=== PATIENT | female | born 1975 | race Caucasian/White ===

== ENCOUNTER 2019-06-28 17:28 | Outpatient (REF) | payer BC, SELFPAY ==
--- NOTE | 2019-06-28 15:30 | PAPFT_PTH ---
PATIENT: Sabrina Padilla LOC: [facility] U#:[id number] AGE/SX: 44/F ROOM: RE06/28/[address]: MILAGROS Shipman : 1975 BED: DIS: 06/28/2019 SPEC #: [id number] RECD: 06/28/19 17:45 STATUS: JODYMeri REQ #: [id number] GARTH: 06/28/19 15:[address]: Michaelle Rendon DEPT: [facility] Cytology RECD BY: Shantell Jimenez ENTERED: 06/28/19 17:45 SP TYPE: PAPFT CAMPBELL DR: Jacquelin Sheridan MD Tissues: 1 - CX/ENDOCX FOR PAP SMEARS Procedures: PAP THIN PREP/UVM Screening HPV DNA PROBE Comments: [id number]
== END 2019-06-28 17:48 ==
LOC: LBN 17:28
PROVIDERS: PCP Family Medicine; Visit Provider Nurse Practitioner Family
DX: Z12.4 Encounter for screening for malignant neoplasm of cervix (principal); Z11.51 Encounter for screening for human papillomavirus (HPV)
CPT/HCPCS: 88142; 87624

== ENCOUNTER 2019-06-30 01:53 | Outpatient (CLI) | payer BC, SELFPAY ==
--- NOTE | 2019-06-30 11:30 | DI.MAMMO_ITS ---
SYMPTOM/DIAGNOSIS: MAMMOGRAMS: Mammograms were interpreted according to the usual protocol including computer analysis with CAD system, tomosynthesis and C view imaging. Comparison with prior examinations. No suspicious masses or microcalcifications are seen. There is no definite evidence of malignancy. Breast density category B. IMPRESSION: Category 1, negative mammogram. Routine screening is recommended. Breast density category B. MQSA ASSESSMENT OF FINDINGS: Negative. Category 1. Patient will receive a letter notifying them of these results. BI-RADS category B. There are scattered areas of fibroglandular density.
== END 2019-06-30 02:13 ==
PROVIDERS: PCP Family Medicine; Visit Provider Nurse Practitioner Family
DX: Z12.31 Encounter for screening mammogram for malignant neoplasm of breast (principal)
CPT/HCPCS: 77063; 77067

== ENCOUNTER 2019-07-01 04:07 | Outpatient (CLI) | payer BC, SELFPAY ==
[2019-07-01 10:52] LABS: Abs Immature Grans 0.02 k/cumm (0.0-0.09); Absolute Basophil Count 0.04 k/cumm (0.0-0.2); Absolute Eosinophil Count 0.11 k/cumm (0.0-0.7); Absolute Lymphocyte Count 2.22 k/cumm (1.2-3.4); Absolute Monocyte Count 0.68 k/cumm (0.11-0.7); Absolute Neutrophil Count 5.68 k/cumm (1.2-6.7); Basophils % 0.5; Eosinophils % 1.3; HCT 37.5 % (36.0-46.0); HGB 11.6 g/dL (12.0-15.5); Immature Grans % 0.2; Lymphocytes % 25.4; Mean Corp. HGB Concentration 30.9 g/dL (32.0-36.0); Mean Corpuscular Hemoglobin 23.3 pg (27.0-33.0); Mean Corpuscular Volume 75.5 fL (80-95); Mean Platelet Volume 9.2 fL (8.0-11.0); Monocytes % 7.8; Neutrophils % 64.8; Platelet Count 467 x1000/uL (130-400); RBC 4.97 m/cumm (4.00-5.20); RBC Distribution Width 16.6 % (11.7-14.6); White Blood Cell Count 8.75 k/cumm (4.4-10.8)
[2019-07-01 11:06] LABS: Hemoglobin A1C 6.1 % (4.5-6.2)
[2019-07-01 13:02] LABS: ALT 33 U/L (14-59); AST 23 U/L (15-37); Albumin 3.2 g/dL (3.4-5.0); Alkaline Phosphatase 97 U/L (46-116); Anion Gap 11.1 mmol/L (3-11); BUN 9 mg/dL (7-18); Bilirubin, Total 0.4 mg/dL (0.2-1.0); CO2 23.9 mmol/L (21.0-32.0); CREATININE 0.63 mg/dL (0.55-1.02); Calcium 8.3 mg/dL (8.5-10.1); Calculated LDL 127 mg/dL; Chloride 106 mmol/L (98-107); Cholesterol 195 mg/dL (50-200); Glucose 87 mg/dL (70-100); HDL Cholesterol 46 mg/dL (40-60); Potassium 4.2 mmol/L (3.5-5.1); Sodium 141 mmol/L (136-145); TSH 1.04 uIU/mL (0.36-3.74); Total Protein 6.8 g/dL (6.4-8.2); Triglyceride 111 mg/dL (30-150)
[2019-07-01 13:20] LABS: FREE T4 1.07 ng/dL (0.76-1.46)
[2019-07-01 15:03] LABS: Iron 30 ug/dL (50-175); Total Iron Binding Capacity 351 ug/dL (250-450); Transferrin Sat 9 % (15-50)
[2019-07-01 15:28] LABS: Ferritin 13 ng/mL (8-388)
[2019-07-04 11:12] LABS: Transferrin 239 mg/dL (201-352)
[2019-07-04 11:24] LABS: Lyme Ab w Rflx to Lyme Confirm Negative
[2019-07-04 17:29] LABS: Anaplasma phagocytophilum Negative (Negative); B. miyamotoi PCR Negative (Negative); Babesia divergens/MO-1 Negative (Negative); Babesia duncani Negative (Negative); Babesia microti Negative (Negative); Ehrlichia chaffeensis Negative (Negative); Ehrlichia ewingii/canis Negative (Negative); Ehrlichia muris eauclairensis Negative (Negative)
== END 2019-07-01 04:27 ==
PROVIDERS: PCP Family Medicine; Visit Provider Nurse Practitioner Family
DX: R53.83 Other fatigue (principal)
CPT/HCPCS: 36415; 80053; 80061; 83721; 87798; 82728; 83036; 83540; 83550; 84439; 84443; 84466; 85025; 86618

== ENCOUNTER 2022-12-23 02:21 | Outpatient (CLI) | payer OTHER, SELFPAY ==
[2022-12-23 15:55] LABS: HCT 42.4 % (36.0-46.0); HGB 13.3 g/dL (11.2-15.7); MCH 25.5 pg (27.0-33.0); MCHC 31.4 % (32.0-36.0); MCV 81 fL (80-95); MPV 8.9 fL (8.0-11.0); Platelet Count 404 10^3/uL (130-400); RBC 5.21 10^6/uL (3.93-5.22); RDW 14.3 % (11.7-14.6); RDW-SD 42.2 fL; WBC 12.81 10^3/uL (4.4-10.8)
[2022-12-23 16:11] LABS: Hemoglobin A1C 5.8 % (<5.7)
[2022-12-23 16:41] LABS: Anion Gap 7.5 mmol/L (3-11); BUN 10 mg/dL (7-18); CO2 28.5 mmol/L (21.0-32.0); CREATININE 0.7 mg/dL (0.55-1.02); Chloride 104 mmol/L (98-107); Estimated GFR 107.28 (mL/min/1.73m2); Glucose 137 mg/dL (74-106); Potassium 3.3 mmol/L (3.5-5.1); Sodium 140 mmol/L (136-145)
[2022-12-23 17:26] LABS: Calculated LDL 82 mg/dL (<100); Cholesterol 210 mg/dL (<200); Ferritin 32 ng/mL (8-252); HDL Cholesterol 50 mg/dL (40-60); Triglyceride 392 mg/dL (<150)
== END 2022-12-23 02:22 | disposition home or self-care (01) ==
PROVIDERS: PCP Nurse Practitioner Family; Visit Provider Nurse Practitioner Family
DX: D50.9 Iron deficiency anemia, unspecified (principal); R73.03 Prediabetes; F41.8 Other specified anxiety disorders; E78.5 Hyperlipidemia, unspecified; R03.0 Elevated blood-pressure reading, without diagnosis of hypertension; E66.01 Morbid (severe) obesity due to excess calories
CPT/HCPCS: 36415; 80048; 80061; 85027; 82728; 83036

== ENCOUNTER → 2023-11-24 02:06 | Outpatient (CLI) | payer OTHER, SELFPAY ==
--- NOTE | 2023-11-24 07:30 | DI.MAMMO_ITS ---
Exam(s) MAMMO SCREENING EXAM: MAMMO SCREENING CLINICAL HISTORY: screening,Z12.39. TECHNIQUE: Bilateral full field digital CC and MLO mammographic images were obtained with 3D tomosyn thesis and utilizing computer aided detection (CAD). COMPARISON: Prior mammograms were reviewed. FINDINGS: There has been no significant change in the appearance and distribution of the fibroglandular tissue. There are no CAD designations. There are no new spiculated masses nor malignant appearing microcalcification groups. There is no significant architectural distortion nor skin thickening-retraction. IMPRESSION: No radiographic evidence of malignancy. BI-RADS Category 1 - Negative Breast Density - Category B - Scattered areas of fibroglandular density Breast density Category C or D implies that the patient has dense breast tissue. Dense breast tissue can make it harder to find cancer on a mammogram. Dense breast tissue is also associated with an incr eased risk of breast cancer. This information about the result of the mammogram report was provided to the patient to raise their awareness. Use this report when you speak with the patient about their risks for breast cancer, which includes their family history. At that time, you may recommend additional screening tests (Ultrasoun d or MRI) as these tests may add significant information. A negative radiographic report should not delay biopsy if a dominant or clinically suspicious mass is present. Up to ten percent of cancers are not identified on mammography. A negative report may reinforce clinical impression. Adenosis and dense breasts may obscure an underlying neoplasm. False positive reports average 6 to 10%. Patient will receive a letter notifying them of these results.
== END ==
PROVIDERS: PCP Nurse Practitioner Family; Visit Provider Nurse Practitioner Family
DX: Z12.31 Encounter for screening mammogram for malignant neoplasm of breast (principal)
CPT/HCPCS: 77063; 77067

== ENCOUNTER 2023-12-14 16:04 | Outpatient (REF) | payer OTHER, SELFPAY ==
--- NOTE | 2023-12-14 16:20 | PAPFT_PTH ---
PATIENT: Sabrina Padilla LOC: [facility] U#:[id number] AGE/SX: 48/F ROOM: RE12/14/[address]: Britt Weinstein : 1975 BED: DIS: 12/14/2023 SPEC #: [id number] RECD: 12/14/23 18:19 STATUS: JODYMeri REElmer #: [id number] GARTH: 12/14/23 16:[address]: Britt Weinstein DEPT: [facility] Cytology RECD BY: Shantell Jimenez ENTERED: 12/14/23 18:20 SP TYPE: PAPFT CAMPBELL DR: Susan Freeman, MILAGROS Tissues: 1 - CX/ENDOCX FOR PAP SMEARS Procedures: PAP THIN PREP/UVM Screening Comments: [id number]
== END 2023-12-14 16:05 | disposition home or self-care (01) ==
LOC: LBN 16:04
PROVIDERS: PCP Nurse Practitioner Family; Visit Provider Advanced Practice Midwife
DX: N94.9 Unspecified condition associated with female genital organs and menstrual cycle (principal); Z01.419 Encounter for gynecological examination (general) (routine) without abnormal findings
CPT/HCPCS: 88142; 87480; 87510; 87660

== ENCOUNTER 2024-11-11 17:17 | Outpatient (REF) | payer BC, SELFPAY ==
--- OUTSIDE RECORDS SUMMARY | 2024-11-11 17:21 | XMS_ITS | Encounter Summary ---
Author Organization [facility] Address [address] [place] [address] Care Team Providers Care Manufacturing Controller Name Role Phone Unavailable Primary Care Provider Unavailabl e Encounter Details Date Type Department Care Team (Late st Contact Info) Description 02/15/2009 Before PRISM Converted Visit ([place]) [facility] [place] conversion [address] [place] [address] Shannen Hammond [address] [place] [place] [address] Social History Tobacco Use Types Packs/Day Years Used Date Smoking Tobacco: Never Assessed Comments Unknown Sex and Gender Information Value Date Recorded Sex Assigned at Not on file Legal Sex Female 18:19 EST Gender Identity Not on file Sexual Orientation Not on file documented as of this encounter Plan of Treatment Not on file documented as of this encounter Procedures Procedure Name Priority Date/Time Associated Diagnosis Comments CYTOPATHOLOGY Routine 02/15/2009 0:00 EDT documented in this encounter Results * CYTOPATHOLOGY (02/15/2009 0:00 EDT) Pathology Report: CYTOPATHOLOGY REPORT ? Reports generated via electronic interface contain original data; ? however they are lacking the format of the original report. ? Caution should be taken when reading/interpreti ng unformatted reports. ? Name: ? SABRINA FRY ? Accession #: ? [id number] ? : ? 1975 (Age: 33) ??F ?Collect Date: ? 02/15/2009 ? Location: ? [facility] ? Receive Date: ? 02/16/2009 ? Provider: ?ANEA LELONG CNM ? Copy to: ? Specimen/Source: ?Pap Test, Cervix/Endocervix, ThinPrep Imaging System ? with manual evaluation ? Last Menstrual Period: ? 2/12/09 ? Menstrual/Pregnanc y Status: ? Other: ? HPVA - HPV testing requested if ASC-US on the current ThinPrep Pap test. ? SPECIMEN ADEQUACY ? Satisfactory for Evaluation ? - transformation zone component present ? GENERAL CATEGORIZATION ? Negative for Intraepithelial Lesion or Malignancy ? INTERPRETATION ? Reactive cellular changes associated with inflammation present (includes ?? repair). ? 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 ? Document reviewed and electronically signed by: ? Ismael James Son, MD ? Report Date: ??02/20/2009 11:24 ? End of Report ? [facility] 02/15/2009 02/16/2009 us Shannen Hammond CNM PATHOLOGY ORDERABLES Final Resul t [facility] [address] [place] [address] documented in this encounter Visit Diagnoses Not on filedocumented in this encounter
--- OUTSIDE RECORDS SUMMARY | 2024-11-11 17:21 | XMS_ITS | Encounter Summary ---
Author Organization [facility] Address [address] [place] [address] Care Team Providers Care Tomahawk Weapon System Operator Name Role Phone Beatriz Redmond MD Primary Care Provider [phone] Encounter Details Date Type Department Care Team (Late st Contact Info) Description 06/28/2019 Results Only [facility] [phone] Michaelle Rendon, [place] [id number] [address] [place] [address] Social History Tobacco Use Types Packs/Day Years [...] Procedure Name Priority Date/Time Associated Diagnosis Comments PAP TEST- RESULT ONLY Routine 06/28/2019 0:00 EDT documented in this encounter Results * PAP TEST- RESULT ONLY (06/28/2019 0:00 EDT) Pathology Report: CYTOPATHOLOGY REPORT Reports generated via electronic interface contain original data; however they are lacking the format of the original report. Caution should be taken when reading/interpreti ng unformatted reports. Name: ? SABRINA FRY ? Accession #: ? [id number] ? : ? 1975 (Age: 44) ??F ?Collect Date: ? 06/28/2019 ? Location: ? [facility] ? Receive Date: ? 06/29/2019 ? Provider: MICHAELLE RENDON SENIOR BUYER Copy to: IGLESIA JETT MD ? Final Report SPECIMEN ADEQUACY ? Satisfactory for Evaluation - transformation zone component present GENERAL CATEGORIZATION ? Negative for Intraepithelial Lesion or Malignancy ?? Last Menstrual Period: 04/2019 Specimen/Source: ??Pap Test, Cervix, ThinPrep Imaging System with manual evaluation Document reviewed and electronically signed by: ? MONAE Christensen(ASCP) ? Report ??Date: 07/01/2019 10:25 HPV with Pap Test ? Date Ordered: ? 07/01/2019 ? Status: ?? Signed Out ?Date Complete: ? 07/04/2019 ? By: ??System Interface ? Date Reported: ? 07/04/2019 ? Interpretation RESULT: Negative for HPV. No E6 or E7 mRNA is detected from HPV types 16,18,31,33,35, 39,45,51,52,56,58, 59,66, and 68 by modeler mediated amplification. Comments Document reviewed and electronically signed by: ? System Interface ? Report date: 07/04/2019 By the signature above, the attending physician certifies that he/she has personally conducted a gross and/or microscopic examination of the described specimens and rendered or confirmed the above diagnosis. End of Report [facility] 06/28/2019 06/29/2019 Michaelle Rendon SENIOR BUYER PATHOLOGY ORDERABLES Final R esult [facility] [address] [place] [address] documented in this encounter Visit Diagnoses Not on filedocumented in this encounter Care Teams Tomahawk Weapon System Operator Relationship Specialty Start Date End Date Beatriz Redmond MD [address] [place] [address] PCP - General 09/28/09 documented as of this encounter
--- OUTSIDE RECORDS SUMMARY | 2024-11-11 17:21 | XMS_ITS | Encounter Summary ---
Author Organization [facility] Address [address] [place] [address] Care Team Providers Care Avid Editor Name Role Phone Beatriz Redmond MD Primary Care Provider [phone] Unknown, Provider Primary Care Provider Unava ilable Encounter Details Date Type Department Care Team (Late st Contact Info) Description 03/01/2004 Results Only [facility] [place] [facility] [place] conversion [address] [place] [address] Michaelle Rendon, [facility] [address] [place] [address] [place] [address] Social History Tobacco Use Types [...] Priority Date/Time Associated Diagnosis Comments CYTOPATHOLOGY Routine 03/01/2004 0:00 EDT documented in this encounter Results * CYTOPATHOLOGY (03/01/2004 0:00 EDT) Pathology Report: CYTOPATHOLOGY REPORT Reports generated via electronic interface contain original data; however they are lacking the format of the original report. Caution should be taken when reading/interpreti ng unformatted reports. Name: ? SABRINA FRY ? Accession #: ? [id number] : ? 1975 (Age: 28) ??F ?Collect Date: ? 03/01/2004 Location: ? [facility] ? Receive Date: ? 03/05/2004 Provider: ?MICHAELLE RENDON ADJUNCT WRITING INSTRUCTOR Copy to: ? Specimen/Source: ?ThinPrep Pap Test, Cervix/Endocervix Last Menstrual Period: ? 02/20/2004 Other: ? HPVA - HPV testing requested if ASC-US on the current ThinPrep Pap test. ? SPECIMEN ADEQUACY ? Satisfactory for Evaluation - transformation zone component present GENERAL CATEGORIZATION ? Negative for Intraepithelial Lesion or Malignancy INTERPRETATION ? 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 ? Document reviewed and electronically signed by: ? MONAE Johnson(ASCP) ? Report Date: ??03/07/2004 11:23 End of Report [facility] 03/01/2004 03/05/2004 us Michaelle Rendon ADJUNCT WRITING INSTRUCTOR PATHOLOGY ORDERABLES Final R esult [facility] [address] [place] [address] documented in this encounter Visit Diagnoses Not on filedocumented in this encounter Care Teams Avid Editor Relationship Specialty Start Date End Date Beatriz Redmond MD [address] [place] [address] PCP - General 09/28/09 Unknown, Provider, PCP - General 09/26/09 09/27/09 documented as of this encounter
--- OUTSIDE RECORDS SUMMARY | 2024-11-11 17:21 | XMS_ITS | Encounter Summary ---
Author Organization [facility] Address [address] [place] [address] Care Team Providers Care Music Instructor Name Role Phone Beatriz Redmond MD Primary Care Provider [phone] Encounter Details Date Type Department Care Team (Late st Contact Info) Description 05/31/2015 Results Only [facility] [phone] Michaelle Rendon, [address] [place] [address] Social History Tobacco Use Types [...] Diagnosis Comments PAP TEST- RESULT ONLY Routine 05/31/2015 0:00 EDT documented in this encounter Results * PAP TEST- RESULT ONLY (05/31/2015 0:00 EDT) Pathology Report: CYTOPATHOLOGY REPORT Reports generated via electronic interface contain original data; however they are lacking the format of the original report. Caution should be taken when reading/interpreti ng unformatted reports. Name: ? SABRINA FRY ? Accession #: ? [id number] ? : ? 1975 (Age: 40) ??F ?Collect Date: ? 05/31/2015 ? Location: ? [facility] ? Receive Date: ? 06/01/2015 ? Provider: MICHAELLE RENDON COAL AND ASH SUPERVISOR Copy to: IGLESIA JETT MD ? Final Report SPECIMEN ADEQUACY ? Satisfactory for Evaluation - transformation zone component present GENERAL CATEGORIZATION ? Negative for Intraepithelial Lesion or Malignancy ?? Last Menstrual Period: 05/18/15 Specimen/Source: ??Pap Test, Cervix/Endocervix, ThinPrep Imaging System with manual evaluation Document reviewed and electronically signed by: ? Radha Keller, CT(ASCP)(IAC) ? Report ??Date: 06/06/2015 17:47 HPV with Pap Test ? Date Ordered: ? 06/06/2015 ? Status: ?? Signed Out ?Date Complete: ? 06/11/2015 ? By: ??System Interface ? Date Reported: ? 06/11/2015 ? Interpretation RESULT: Negative for HPV. No E6 or E7 mRNA is detected from HPV types 16,18,31,33,35, 39,45,51,52,56,58, 59,66, and 68 by human resources technician mediated amplification. Comments Document reviewed and electronically signed by: ? System Interface ? Report date: 06/11/2015 By the signature above, the attending physician certifies that he/she has personally conducted a gross and/or microscopic examination of the described specimens and rendered or confirmed the above diagnosis. End of Report [facility] 05/31/2015 06/01/2015 Michaelle Rendon COAL AND ASH SUPERVISOR PATHOLOGY ORDERABLES Final R esult [facility] [address] [place] [address] documented in this encounter Visit Diagnoses Not on filedocumented in this encounter Care Teams Music Instructor Relationship Specialty Start Date End Date Beatriz Redmond MD [address] [place], [place] [id number] PCP - General 09/28/09 documented as of this encounter
--- OUTSIDE RECORDS SUMMARY | 2024-11-11 17:21 | XMS_ITS | Referral Summary ---
Author Organization [facility] Address [address] [place] [address] Care Team Providers Care Cook Specialty Name Role Phone Beatriz Redmond MD Primary Care Provider [phone] Social History Tobacco Use Types Packs/Day Years Used Date Smoking Tobacco: Never Assessed Comments Unknown Sex and Gender Information Value Date Recorded Sex Assigned at Not on file Legal Sex Female 18:19 EST Gender Identity Not on file Sexual Orientation Not on file Plan of Treatment Not on file Insurance [facility] Care Teams Cook Specialty Relationship Specialty Start Date End Date Beatriz Redmond MD [address] [place] [address] PCP - General 09/28/09
--- OUTSIDE RECORDS SUMMARY | 2024-11-11 17:21 | XMS_ITS | Encounter Summary ---
Author Organization [facility] Address [address] [place] [address] Care Team Providers Care Media Sales Executive Name Role Phone Beatriz Redmond MD Primary Care Provider [phone] Encounter Details Date Type Department Care Team (Late st Contact Info) Description 03/25/2011 Results Only [facility] - [facility] ([facility]) [address] [place], [place] [phone] Michaelle Rendon, [facility] [address] [place] [address] [place] [phone] Social History Tobacco Use Types Packs/Day Years [...] Diagnosis Comments PAP TEST- RESULT ONLY Routine 03/25/2011 0:00 EDT documented in this encounter Results * PAP TEST- RESULT ONLY (03/25/2011 0:00 EDT) Pathology Report: CYTOPATHOLOGY REPORT ? Reports generated via electronic interface contain original data; ? however they are lacking the format of the original report. ? Caution should be taken when reading/interpreti ng unformatted reports. ? Name: ? SABRINA FRY ? Accession #: ? [id number] ? : ? 1975 (Age: 35) ??F ?Collect Date: ? 03/25/2011 ? Location: ? [facility] ? Receive Date: ? 03/26/2011 ? Provider: ?MICHAELLE ALTAGRACIA INTERACTIVE MEDIA MARKETING SPECIALIST ? Copy to: ? Specimen/Source: ?Pap Test, Cervix/Endocervix, ThinPrep Imaging System ? with manual evaluation ? Last Menstrual Period: ? 03/09/2011 ? SPECIMEN ADEQUACY ? Satisfactory for Evaluation ? - transformation zone component present ? GENERAL CATEGORIZATION ? Negative for Intraepithelial Lesion or Malignancy ? Document reviewed and electronically signed by: ? Vanna Murray, CT(ASCP) ? Report Date: ??03/31/2011 11:54 ? End of Report ? [facility] 03/25/2011 03/26/2011 us Michaelle Rendon INTERACTIVE MEDIA MARKETING SPECIALIST PATHOLOGY ORDERABLES Final R esult Performing Organization Address City/State/[facility] Co de Phone Number [facility] [address] [place] [address] documented in this encounter Visit Diagnoses Not on filedocumented in this encounter Care Teams Media Sales Executive Relationship Specialty Start Date End Date Beatriz Redmond MD [address] [place] [address] PCP - General 09/28/09 documented as of this encounter
--- OUTSIDE RECORDS SUMMARY | 2024-11-11 17:21 | XMS_ITS | Encounter Summary ---
Author Organization [facility] Address [address] [place] [address] Care Team Providers Care Church Musician Name Role Phone Unknown, Provider Primary Care Provider Unava ilable Encounter Details Date Type Department Care Team (Late st Contact Info) Description 09/26/2009 Orders Only [facility] [phone] Garfield Kim MD [address] [place] [address] Social History Tobacco Use Types Packs/Day Years [...] Procedure Name Priority Date/Time Associated Diagnosis Comments SURGICAL PATHOLOGY Routine 09/26/2009 0:00 EST documented in this encounter Results * SURGICAL PATHOLOGY (09/26/2009 0:00 EST) Pathology Report: SURGICAL PATHOLOGY REPORT ? Reports generated via electronic interface contain original data; ? however they are lacking the format of the original report. ? Caution should be taken when reading/interpreti ng unformatted reports. ? Name: ? LISANDRA, SABRINA L ? Accession #: ? [id number] ? : ? 1975 (Age: 34) ??F ? Collect Date: ? 09/26/2009 ? Location: ? [facility] ? Receive Date: ? 09/26/2009 ? Provider: GARFIELD S BRENNON MD ? Copy to: EDDIE BETANCOURT MD ? Final Pathologic Diagnosis: ? A. ?Fallopian tube, right, segmental resection: ? 1. ?No pathologic features. ? 2. ? Complete cross section identified. ? B. ?Fallopian tube, left, segmental resection: ? 1. ?No pathologic features. ? 2. ? Complete cross section identified. ? Document reviewed and electronically signed by: ? Ismael Cline MD ? Report ??Date: 09/28/2009 15:33 ? By the signature above, the attending physician certifies that he/she has ? personally conducted a gross and/or microscopic examination of the described ? specimens and rendered or confirmed the above diagnosis. ? Specimen(s) Received: ? A. ?Right fallopian tube (#1) ? B. ? Left fallopian tube (#2) ? Clinical History: ? Undesired fertility; LMP: 2/112/2009 ? Gross Description: ? Received in formalin labelled Sabrina Padilla and right fallopian tube is a 2.2 cm in length by 0.5 cm in diameter dutton-purple, tubular soft tissue, ? grossly consistent with a segment of fallopian tube. ??Sectioning reveals a ? pinpoint lumen throughout. ??Two sales service representative cross sections are submitted in ?? (A). ? Received in formalin labelled Sabrina Padilla and left fallopian tube is a 2.1 cm in length by 0.5 cm in diameter dutton-pink, tubular soft tissue, grossly ? consistent with a segment of fallopian tube. ??Sectioning reveals a pinpoint ? lumen throughout. ??Two sales service representative cross sections are submitted in (B). ??(L. Herrera)/kmm ? End of Report ? [facility] 09/26/2009 09/26/2009 16: 21 EST us Garfield Kim MD PATHOLOGY ORDERABLES Final Resu lt Performing Organization Address City/State/[facility] Co de Phone Number [facility] [address] [place] [address] documented in this encounter Visit Diagnoses Not on filedocumented in this encounter Care Teams Church Musician Relationship Specialty Start Date End Date Unknown, Provider, PCP - General 09/26/09 09/27/09 documented as of this encounter
--- OUTSIDE RECORDS SUMMARY | 2024-11-11 17:21 | XMS_ITS | Clinical Summary ---
Author Organization [facility] Address [address] [place] [address] Care Team Providers Care Molded Goods Spot Picker Name Role Phone Beatriz Redmond MD Primary Care Provider [phone] Social History Tobacco Use Types Packs/Day Years Used Date Smoking Tobacco: Never Assessed Comments Unknown Sex and Gender Information Value Date Recorded Sex Assigned at Not on file Legal Sex Female 18:19 EST Gender Identity Not on file Sexual Orientation Not on file Plan of Treatment Health Maintenance Due Date Last Done Comments Hepatitis C Screen 1975 Hepatitis B Vaccine (1 of 3 - 19+ 3-dose series) 04/01 COVID-19 Vaccine (2023- season) 2024 Insurance [facility] Care Teams Molded Goods Spot Picker Relationship Specialty Start Date End Date Beatriz Redmond MD [address] [place] [address] PCP - General 09/28/09
--- OUTSIDE RECORDS SUMMARY | 2024-11-11 17:21 | XMS_ITS | Encounter Summary ---
Author Organization [facility] Address [address] [place] [address] Care Team Providers Care Concrete Pouring Supervisor Name Role Phone Beatriz Redmond MD Primary Care Provider [phone] Unknown, Provider Primary Care Provider Unava ilable Encounter Details Date Type Department Care Team (Late st Contact Info) Description 07/06/2007 Results Only [facility] [place] conversion [address] [place] [address] Michaelle Rendon, [facility] [address] [place] [address] [place] [address] Social History Tobacco Use Types [...] Priority Date/Time Associated Diagnosis Comments CYTOPATHOLOGY Routine 07/06/2007 0:00 EDT documented in this encounter Results * CYTOPATHOLOGY (07/06/2007 0:00 EDT) Pathology Report: CYTOPATHOLOGY REPORT Reports generated via electronic interface contain original data; however they are lacking the format of the original report. Caution should be taken when reading/interpreti ng unformatted reports. Name: ? SABRINA FRY ? Accession #: ? [id number] : ? 1975 (Age: 32) ??F ?Collect Date: ? 07/06/2007 Location: ? [facility] ? Receive Date: ? 07/07/2007 Provider: ?MICHAELLE RENDON MOLD CLOSER HELPER Copy to: ? Specimen/Source: ?ThinPrep Pap Test, Cervix/Endocervix, processed on [employer] ThinPrep Imaging System, with manual evaluation Last Menstrual Period: ? 06/21/07 Previous Gynecologic Pathology: ? ASC-US: , & Other: ? HPVA - HPV testing requested if ASC-US on the current ThinPrep Pap test. ? SPECIMEN ADEQUACY ? Satisfactory for Evaluation - transformation zone component present GENERAL CATEGORIZATION ? Negative for Intraepithelial Lesion or Malignancy ? Document reviewed and electronically signed by: ? MONAE Pope(ASCP) ? Report Date: ??07/09/2007 14:24 End of Report [facility] 07/06/2007 07/07/2007 us Michaelle Rendon MOLD CLOSER HELPER PATHOLOGY ORDERABLES Final R esult [facility] [address] [place] [address] documented in this encounter Visit Diagnoses Not on filedocumented in this encounter Care Teams Concrete Pouring Supervisor Relationship Specialty Start Date End Date Beatriz Redmond MD [address] [place] [address] PCP - General 09/28/09 Unknown, Provider, PCP - General 09/26/09 09/27/09 documented as of this encounter
--- OUTSIDE RECORDS SUMMARY | 2024-11-11 17:21 | XMS_ITS | Encounter Summary ---
Author Organization [facility] Address [address] [place] [address] Care Team Providers Care Information Officer Name Role Phone Beatriz Betancourt MD Primary Care Provider [phone] Encounter Details Date Type Department Care Team (Late st Contact Info) Description 02/17/2012 Results Only [facility] [phone] Fernando Moya, DO [address] [place] [address] Social History Tobacco Use Types Packs/Day Years [...] Date/Time Associated Diagnosis Comments SURGICAL PATHOLOGY Routine 02/17/2012 0:00 EDT documented in this encounter Results * SURGICAL PATHOLOGY (02/17/2012 0:00 EDT) Pathology Report: SURGICAL PATHOLOGY REPORT Reports generated via electronic interface contain original data; however they are lacking the format of the original report. Caution should be taken when reading/interpreti ng unformatted reports. Name: ? SABRINA FRY ? Accession #: ? [id number] ? : ? 1975 (Age: 36) ??F ? Collect Date: ? 02/17/2012 ? Location: ? [facility] ? Receive Date: ? 02/18/2012 ? Provider: FERNANDO MOYA DO Copy to: BEATRIZ BETANCOURT MD ? Final Pathologic Diagnosis: A. ?Skin of breast, left, 2 o'clock, punch biopsy: 1. ?Skin with no appreciable pathologic features. ??See comment. B. ?Skin of breast, left, 4 o'clock, punch biopsy: 1. ?Skin with no appreciable pathologic features. C. ?Skin of breast, left, 7 o'clock, punch biopsy: 1. ?Skin with no appreciable pathologic features. D. ?Skin of breast, left, 10 o'clock, punch biopsy: 1. ?Skin with no appreciable pathologic features. Comment: ? All four specimens consist of a small punch biopsy of skin with no significant pathologic features. ??The epidermis is of normal thickness and there are no inflammatory changes such as spongiosis or interface alteration. ??There is no appreciable inflammation. ??There is no evidence of malignancy. ??(Dr. Yeboah)/[facility] Microscopic Description: ? The four biopsies show similar features. ??Each is a small punch biopsy of skin to the mid reticular dermis. ??The stratum corneum is composed of a normal layer of basketweave orthokeratin. ??The epidermis is of normal thickness and rete architecture. ??The keratinocytes show inspecting machine adjuster maturation with no appreciable atypia. ??There is no spongiosis and the interface is intact. ??The underlying dermis appears normal. ??There is no appreciable inflammation. ??(Dr. Yeboah)/[facility] Document reviewed and electronically signed by: NICOLE YEBOAH MD Report ??Date: 02/19/2012 14:24 By the signature above, the attending physician certifies that he/she has personally conducted a gross and/or microscopic examination of the described specimens and rendered or confirmed the above diagnosis. Specimen(s) Received: A. ?L breast 2 o'clock B. ? L breast 4 o'clock C. ? L breast 7 o'clock D. ? L breast 10 o'clock Clinical History: ? Left breast biopsies x4 for pathology ? Gross Description: ? Received in formalin labelled Valerie, Sabrina and left nipple tissue 2 o'clock is an ovoid punch biopsy of dutton-white skin measuring 0.3 x 0.2 cm in diameter and 0.2 cm in thickness. ??The specimen is submitted intact as (A). Received in formalin labelled Valerie, Sabrina and left nipple tissue 4 o'clock is a punch biopsy of dutton-white skin measuring 0.2 cm in diameter and 0.3 cm in thickness. ??The specimen is submitted intact as (B). Received in formalin labelled Valerie, Sabrina and left nipple tissue 7 o'clock is a punch biopsy of dutton-white skin measuring 0.2 cm in diameter and 0.2 cm in thickness. ??The specimen is submitted intact as (C). Received in formalin labelled Valerie, Sabrina and left nipple tissue 10 o'clock is a punch biopsy of dutton-white skin measuring 0.2 cm in diameter and 0.1 cm in thickness. ??The specimen is submitted intact as (D). ??(Payton Worley)/[facility] End of Report [facility] 02/17/2012 02/18/2012 9:1 7 EDT us Fernando Moya DO PATHOLOGY ORDERABLES Final Res ult [facility] [address] [place] [address] documented in this encounter Visit Diagnoses Not on filedocumented in this encounter Care Teams Information Officer Relationship Specialty Start Date End Date Beatriz Betancourt MD [address] [place] [address] PCP - General 09/28/09 documented as of this encounter
--- OUTSIDE RECORDS SUMMARY | 2024-11-11 17:21 | XMS_ITS | Encounter Summary ---
Author Organization [facility] Address [address] [place] [address] Care Team Providers Care Rfid Strategist Name Role Phone Beatriz Redmond MD Primary Care Provider [phone] Encounter Details Date Type Department Care Team (Late st Contact Info) Description 12/16/2023 Lab Requisition [facility] - [address] [address] [address] [place] [address] Encounter for other general examination Social History Tobacco Use Types Packs/Day Years [...] Name Priority Date/Time Associated Diagnosis Comments PAP TEST Today 12/14/2023 16:20 EST Encounter for other general examination documented in this encounter Results * PAP TEST (12/14/2023 16:20 EST) Specimens A. Cervix and/or Endocervix , ThinPrep Imaging System with Manual Evaluation 12/28/2023 10:36 EST [facility] Specimen Adequacy Satisfactory for Evaluation - transformation zone component present 12/28/2023 10:36 EST [facility] General Categorization Negative for intraepithelial lesion or malignancy 12/28/2023 10:36 [facility] Descriptive Diagnosis Reactive cellular changes associated with inflammation present (includes repair). 12/28/2023 10:36 [facility] Attestation By the signature below, the attending physician certifies that they have personally conducted a gross and/or microscopic examination of the described specimens and rendered or confirmed the above diagnosis. 12/28/2023 10:36 [facility] at 1036 Clinical History SEE BELOW 12/28/19 10:36 [facility] Performing Lab [facility] 12/28/2023 10:36 [facility] Scanned Images 12/28/2023 10:36 [facility] Pap Test CERVIX UTERI STRUCTURE / Unknown 12/14/2023 16:20 EST 12/16/2023 13:05 EST Britt Weinstein [facility] PATHOLOGY ORDERABLES F inal Result [facility] [address] [place] [address] documented in this encounter Visit Diagnoses Diagnosis Encounter for other general examination documented in this encounter Care Teams Rfid Strategist Relationship Specialty Start Date End Date Beatriz Redmond MD [address] [place] [address] PCP - General 09/28/09 documented as of this encounter
--- OUTSIDE RECORDS SUMMARY | 2024-11-11 17:22 | XMS_ITS | Encounter Summary ---
Author Organization [facility] Address [address] [place] [address] Care Team Providers Care Janitorial Manager Name Role Phone Beatriz Redmond MD Primary Care Provider [phone] Unknown, Provider Primary Care Provider Unava ilable Encounter Details Date Type Department Care Team (Late st Contact Info) Description 02/20/2000 Results Only [facility] conversion [address] [place] [address] Michaelle Rendon, [facility] [address] [place] [address] [place] [address] Social History Tobacco Use Types [...] Priority Date/Time Associated Diagnosis Comments CYTOPATHOLOGY Routine 02/20/2000 12:16 EDT documented in this encounter Results * CYTOPATHOLOGY (02/20/2000 12:16 EDT) Pathology Report: CYTOPATHOLOGY REPORT Reports generated via electronic interface contain original data; however they are lacking the format of the original report. Caution should be taken when reading/interpreti ng unformatted reports. Name: ? SABRINA FRY ? Accession #: ? [id number] : ? 1975 (Age: 24) ??F ?Collect Date: ? 02/20/2000 Location: ?Receive Date: ? 02/20/2000 Provider: ?MICHAELLE ALTAGRACIA ROTARY FURNACE TENDER Copy to: ?MICHAELLE ALTAGRACIA ROTARY FURNACE TENDER ? Specimen/Source: ?Home Health Registered Nurse ThinPrep Last Menstrual Period: ? GYNECOLOGIC ??CYTOPATHOLOGY ??REPORT Name: SABRINA FRY ?[facility] : 1975 ?? 24Y F ?Client ID: [id number] SS#: [id number] ? Clinician: ALTAGRACIA ROTARY FURNACE TENDER, MICHAELLE ?? Location: [facility] ??Copy to: ?? Specimen: ?Home Health Registered Nurse ThinPrep ? Source: Cervix/Endocervix ?Collected: 02/18/00 ? Received: 02/20/2000 ?LMP: 02/03/00 ? Hormone Therapy: No ? : No ? Radiation Therapy: No ?? Post : No ?Chemotherapy: No ?IUD: No ? Prev Abnormal Pap: Yes ?? Clinical Hx: ASCUS. ASCUS, favor reactive, epithelial ? cell abnormality. cx bx, foval acute cervicitis ? with epithelial cell changes. white lesion cx ? bx, parakeratosis. ?(Blank bryant indicate information not provided on requisition) SPECIMEN ADEQUACY: ? Satisfactory For Evaluation ?? GENERAL CATEGORIZATION: ? WITHIN NORMAL LIMITS ? Reviewed And Electronically Signed By: ? Hubert Whelan, CT(ASCP) ? Maribel Lopez, SCT(ASCP) ? Report Date: ?? 02/26/2000 [facility] Archived Tests - Final Diagnosis Text Field: Clinical History : ; ASCUS. ASCUS, favor reactive, epithelial cell abnormality. cx bx, foval acute cervicitis with epithelial cell changes. white lesion cx bx, parakeratosis. ? Document reviewed and electronically signed by: ? Conversion ? Report Date: ??02/26/2000 00:00 End of Report [facility] 02/20/2000 12:1 6 EDT 02/20/2000 12:17 EDT Michaelle Rendon ROTARY FURNACE TENDER PATHOLOGY ORDERABLES Final R esult Performing Organization Address City/State/[facility] Co de Phone Number [facility] [address] [place] [address] documented in this encounter Visit Diagnoses Not on filedocumented in this encounter Care Teams Janitorial Manager Relationship Specialty Start Date End Date Beatriz Redmond MD [address] [place], [place] [address] PCP - General 09/28/09 Unknown, ProviderMD PCP - General 09/26/09 09/27/09 documented as of this encounter
--- OUTSIDE RECORDS SUMMARY | 2024-11-11 17:22 | XMS_ITS | Encounter Summary ---
Author Organization [facility] Address [address] [place] [address] Care Team Providers Care Load Dispatcher Name Role Phone Beatriz Redmond MD Primary Care Provider [phone] Unknown, Provider Primary Care Provider Unava ilable Encounter Details Date Type Department Care Team (Late st Contact Info) Description 04/29/2001 Results Only [facility] conversion [address] [place] [address] Brandon Palomo MD [address] [place], [place] [address] Social History Tobacco Use Types Packs/Day Years [...] Priority Date/Time Associated Diagnosis Comments CYTOPATHOLOGY Routine 04/29/2001 0:00 EDT documented in this encounter Results * CYTOPATHOLOGY (04/29/2001 0:00 EDT) Pathology Report: CYTOPATHOLOGY REPORT Reports generated via electronic interface contain original data; however they are lacking the format of the original report. Caution should be taken when reading/interpreti ng unformatted reports. Name: ? SABRINA FRY ? Accession #: ? [id number] : ? 1975 (Age: 26) ??F ?Collect Date: ? 04/29/2001 Location: ? [facility] ? Receive Date: ? 05/03/2001 Provider: ?BRANDON PALOMO MD Copy to: ? Specimen/Source: ?ThinPrep Pap Test, Cervix/Endocervix Last Menstrual Period: ? 06/29/00 Menstrual/Pregnanc y Status: ? Post Previous Gynecologic Pathology: ? ASC-US: , & ? SPECIMEN ADEQUACY ? Satisfactory for evaluation. GENERAL CATEGORIZATION ? Within Normal Limits ? Document reviewed and electronically signed by: ? Prabha Stanton, ??CT(ASCP) ? Report Date: ??05/04/2001 15:28 End of Report [facility] 04/29/2001 05/03/2001 us Brandon Palomo MD PATHOLOGY ORDERABLES Final Resul t [facility] [address] [place] [address] documented in this encounter Visit Diagnoses Not on filedocumented in this encounter Care Teams Load Dispatcher Relationship Specialty Start Date End Date Beatriz Redmond MD [address] [place] [address] PCP - General 09/28/09 Unknown, Provider, PCP - General 09/26/09 09/27/09 documented as of this encounter
--- OUTSIDE RECORDS SUMMARY | 2024-11-11 17:22 | XMS_ITS | Encounter Summary ---
Author Organization [facility] Address [address] [place] [address] Care Team Providers Care Fire Department Marine Engineer Name Role Phone Beatriz Redmond MD Primary Care Provider [phone] Unknown, Provider Primary Care Provider Unava ilable Encounter Details Date Type Department Care Team (Late st Contact Info) Description 06/17/2001 Results Only [facility] conversion [address] [place] [address] Costa Schaffer, DO [address] [facility] ,[address] [place], [place] [id number] Social History Tobacco Use Types Packs/Day Years [...] Date/Time Associated Diagnosis Comments SURGICAL PATHOLOGY Routine 06/17/2001 0:00 EDT documented in this encounter Results * SURGICAL PATHOLOGY (06/17/2001 0:00 EDT) Pathology Report: SURGICAL PATHOLOGY REPORT Reports generated via electronic interface contain original data; however they are lacking the format of the original report. Caution should be taken when reading/interpreti ng unformatted reports. Name: ? LISANDRASABRINA Ronaldo ? Accession #: ? [id number] ? : ? 1975 (Age: 26) ??F ? Collect Date: ? 06/17/2001 ? Location: ? [facility] ? Receive Date: ? 06/17/2001 ? Provider: COSTA SCHAFFER DO Copy to: ERLIN VILLAGOMEZ MD ? Final Pathologic Diagnosis: A. ?Gallbladder, cholecystectomy: 1. ?Subacute and chronic cholecystitis. 2. ?Cholelithiasis. B. ?Stomach, polyp, biopsy: 1. ?Fundic gland polyp. 2. ?Chronic gastritis. 3. ?Zuleyma stain is negative for Helicobacter pylori-like organisms. C. ?Esophagus, distal, biopsy: 1. ?Squamous mucosa with moderate reflux esophagitis. 2. ?Separate fragment of gastric type mucosa with chronic inflammation. 3. ?Zuleyma stain negative for Helicobacter pylori-like organisms. 4. ?No evidence of intestinal metaplasia. Document reviewed and electronically signed by: Nataliya Wolf MD Report ??Date: 06/22/2001 14:36 By the signature above, the attending physician certifies that he/she has personally conducted a gross and/or microscopic examination of the described specimens and rendered or confirmed the above diagnosis. Specimen(s) Received: A. ?Gallbladder B. ?Polyp in hiatal hernia C. ?Distal esophageal biopsies Clinical History: ? Cholelithiasis; RUQ biliary colic type pain; epigastric pain /GERD Gross Description: ? Received in formalin labelled Lisandra and gallbladder is a gallbladder that is received closed that measures 8.0 cm in length and 5.0 cm in internal circumference. There is a small amount of attached cystic duct that measures 1.0 cm in length and 2.0 cm in internal circumference. ??There are five multifaceted dutton-brown to dutton-yellow gallstones that measure in aggregate 3.0 x 2.0 x 1.0 cm. The mucosa is dutton-red and velvety. The muscle wall measures 0.1 to 0.2 cm in thickness. ??The serosal surface is dutton-pink smooth and shiny. Two labor relations representative sections of gallbladder along with the cystic duct margin are submitted as (A). Received in Hollande' s fixative labelled Lisandra and polyp from hiatal hernia is a dutton-yellow roughly ovoid fragment of tissue that measures 0.5 x 0.4 x 0.2 cm. ??There is no identifiable stalk. It is bisected and submitted entirely as (B). Received in Hollande' s fixative labelled Lisandra and #2 distal esophagus are two dutton-yellow irregularly shaped fragments of tissue that measure 0.2 x 0.2 x 0.1 cm and 0.4 x 0.1 x 0.1 cm. They are submitted entirely as (C). ??(Dr. Garcia)/[facility] End of Report [facility] 06/17/2001 06/17/2001 15: 41 EDT us Costa Schaffer DO PATHOLOGY ORDERABLES Fi nal Result [facility] [address] [place] [address] documented in this encounter Visit Diagnoses Not on filedocumented in this encounter Care Teams Fire Department Marine Engineer Relationship Specialty Start Date End Date Beatriz Redmond MD [address] [place] [address] PCP - General 09/28/09 Unknown, Provider, PCP - General 09/26/09 09/27/09 documented as of this encounter
--- OUTSIDE RECORDS SUMMARY | 2024-11-11 17:22 | XMS_ITS | Encounter Summary ---
Author Organization [facility] Address [address] [place] [address] Care Team Providers Care Line Haul Driver Name Role Phone Beatriz Redmond MD Primary Care Provider [phone] Unknown, Provider Primary Care Provider Unava ilable Encounter Details Date Type Department Care Team (Late st Contact Info) Description 05/27/2002 Results Only [facility] conversion [address] [place] [address] Michaelle Rendon, [facility] [address] [place] [address] [place] [address] Social History Tobacco Use Types [...] Priority Date/Time Associated Diagnosis Comments CYTOPATHOLOGY Routine 05/27/2002 0:00 EDT documented in this encounter Results * CYTOPATHOLOGY (05/27/2002 0:00 EDT) Pathology Report: CYTOPATHOLOGY REPORT Reports generated via electronic interface contain original data; however they are lacking the format of the original report. Caution should be taken when reading/interpreti ng unformatted reports. Name: ? SABRINA FRY ? Accession #: ? [id number] : ? 1975 (Age: 27) ??F ?Collect Date: ? 05/27/2002 Location: ? [facility] ? Receive Date: ? 05/31/2002 Provider: ?MICHAELLE RENDON HAND WELT BUTTER Copy to: ? Specimen/Source: ?ThinPrep Pap Test, Cervix/Endocervix Last Menstrual Period: ? 05/15/02 Previous Gynecologic Pathology: ? ASC-US: , , Other: ? Additional clinical information: , 04/09 WNL ? SPECIMEN ADEQUACY ? Satisfactory for Evaluation - transformation zone component present GENERAL CATEGORIZATION ? Negative for Intraepithelial Lesion or Malignancy ? Document reviewed and electronically signed by: ? MERNA Guerrero(ASCP) ? Report Date: ??06/06/2002 11:40 End of Report [facility] 05/27/2002 05/31/2002 us Michaelle Rendon HAND WELT BUTTER PATHOLOGY ORDERABLES Final R esult [facility] [address] [place] [address] documented in this encounter Visit Diagnoses Not on filedocumented in this encounter Care Teams Line Haul Driver Relationship Specialty Start Date End Date Beatriz Redmond MD [address] [place] [address] PCP - General 09/28/09 Unknown, Provider, PCP - General 09/26/09 09/27/09 documented as of this encounter
== END 2024-11-11 17:18 | disposition home or self-care (01) ==
LOC: LBN 17:17
PROVIDERS: PCP Nurse Practitioner Family; Visit Provider Nurse Practitioner Family
DX: N89.8 Other specified noninflammatory disorders of vagina (principal); I10 Essential (primary) hypertension; Z12.31 Encounter for screening mammogram for malignant neoplasm of breast; M72.2 Plantar fascial fibromatosis; G47.00 Insomnia, unspecified; R73.03 Prediabetes; F41.1 Generalized anxiety disorder; F33.9 Major depressive disorder, recurrent, unspecified; Z71.89 Other specified counseling
CPT/HCPCS: 87480; 87510; 87660

== ENCOUNTER 2024-12-06 02:11 | Outpatient (CLI) | payer BC, SELFPAY ==
--- NOTE | 2024-12-06 | DI.MAMMO_ITS ---
Exam(s) MAMMO SCREENING EXAM: MAMMO SCREENING CLINICAL HISTORY: screening,z12.39 TECHNIQUE: Bilateral full field digital CC and MLO mammographic images were obtained with 3D tomosyn thesis and utilizing computer aided detection (CAD). COMPARISON: Available for comparison. FINDINGS: Masses/Architectural Distortion: There is a new 5 mm nodule in the posterior outer left breast on the craniocaudad view 7.7 cm from the nipple. There are no areas of architectural distortion present. Microcalcifications: No suspicious pleomorphic-type are seen. Skin Thickening/Nipple Retraction: None. IMPRESSION: 1. There is a new left breast nodule in the outer posterior left breast. 2. This area should be further evaluated with a spot compression view. Targeted left breast ultrasou nd may be indicated at that time. BI-RADS Category 0 - Incomplete: Need additional imaging evaluation Breast Density - Category B - Scattered areas of fibroglandular density Breast density category C or D implies that the patient has dense breast tissue. Dense breast tissue is very common and is not abnormal but dense breast tissue can make it harder to find cancer on a ma mmogram. Also, dense breast tissue may increase their breast cancer risk. This information about the result of the mammogram report was provided to the patient to raise their awareness. Use this report when you speak with the patient about their risks for breast cancer, which includes their family hist ory. At that time, you may recommend for more screening tests (Ultrasound or MRI) as they might be us eful based on their risk. A negative radiographic report should not delay biopsy if a dominant or clinically suspicious mass is present. Up to ten percent of cancers are not identified on mammography. A negative report may reinforce clinical impression. Adenosis and dense breasts may obscure an underlying neoplasm. False positive reports average 6 to 10%. Patient will receive a letter notifying them of these results.
== END 2024-12-06 02:31 ==
LOC: DI 02:11
PROVIDERS: PCP Nurse Practitioner Family; Visit Provider Nurse Practitioner Family
DX: Z12.31 Encounter for screening mammogram for malignant neoplasm of breast (principal); R92.323 Mammographic fibroglandular density, bilateral breasts
CPT/HCPCS: 77063; 77067

== ENCOUNTER 2024-12-08 02:34 | Outpatient (CLI) | payer BC, SELFPAY ==
--- NOTE | 2024-12-08 | DI.MAMMO_ITS ---
Exam(s) MG MAMMO SCREEN CALL BACK UNI US BREAST LT LIMITED EXAM: MG MAMMO SCREEN CALL BACK UNI and U/S breast LT limited CLINICAL HISTORY: F/U MAMMO, NEW LT BREAST NODULE OUTER POST LT BREAST,R94.8. TECHNIQUE: Craniocaudal and mediolateral oblique Full Field Digital Mammography views of the left br east with Computer Aided Diagnosis followed by Tomosynthesis and limited left breast ultrasound. COMPARISON: Comparison is made with prior examinations. FINDINGS: Mammography/Tomosynthesis: Masses/Architectural Distortion: The area of concern is less prominent on the current examination. T here is an ovoid opacity in the outer left breast which was present on prior examinations. No areas of architectural distortion are seen. Microcalcifictions: No suspicious pleomorphic-type are seen. Skin Thickening/Nipple Retraction: None. Limited left breast US: Echotexture: Normal appearance of the glandular tissue. Shadowing: No suspicious foci. Cyst: None. Solid lesions: None seen. Ductal dilation: None. IMPRESSION: 1. No definite evidence of malignancy is noted. 2. A six-month follow-up left mammogram is requested for re-evaluation. Ultrasound may be indicated at that time. 3. The findings were discussed with the patient on the date of the examination. BI-RADS Category 3 - 6 month - Probably Benign Finding: Recommend follow-up imaging in 6 months Breast Density - Category B - Scattered areas of fibroglandular density Breast density Category C or D implies that the patient has dense breast tissue. Dense breast tissue can make it harder to find cancer on a mammogram. Dense breast tissue is also associated with an incr eased risk of breast cancer. This information about the result of the mammogram report was provided to the patient to raise their awareness. Use this report when you speak with the patient about their risks for breast cancer, which includes their family history. At that time, you may recommend additional screening tests (Ultrasoun d or MRI) as these tests may add significant information. A negative radiographic report should not delay biopsy if a dominant or clinically suspicious mass is present. Up to ten percent of cancers are not identified on mammography. A negative report may reinforce clinical impression. Adenosis and dense breasts may obscure an underlying neoplasm. False positive reports average 6 to 10%. Patient will receive a letter notifying them of these results.
== END 2024-12-08 02:54 ==
LOC: DI 02:34
PROVIDERS: PCP Nurse Practitioner Family; Visit Provider Nurse Practitioner Family
DX: R94.8 Abnormal results of function studies of other organs and systems (principal); Z12.31 Encounter for screening mammogram for malignant neoplasm of breast; R92.323 Mammographic fibroglandular density, bilateral breasts; D24.2 Benign neoplasm of left breast
CPT/HCPCS: 76642; 77063; 77067

== ENCOUNTER 2025-03-08 00:34 | Outpatient (CLI) | payer BC, SELFPAY ==
--- NOTE | 2025-03-08 08:00 | DI.MAMMO_ITS ---
Exam(s) MAMMO DIAGNOSTIC UNI EXAM: MAMMO DIAGNOSTIC UNI CLINICAL HISTORY: f/u abnl mammo/3-6 mo f/u,ovoid opacity lt,z09,r92.8 TECHNIQUE: Left cc and MLO mammogram images were performed according to the usual protocol includin g computer analysis with CAD system, tomosynthesis and C-view imaging. COMPARISON: 2014 through 08 December 2024 FINDINGS: The left breast is composed of scattered fibroglandular densities, Breast Density category B. No suspicious masses or suspicious microcalcifications are seen. There is a stable circumscribed nod ule in the posterior, central lateral tissue. There are no suspicious features. Findings may repres ent intramammary lymph node. No skin thickening or abnormal axillary lymph nodes are seen. IMPRESSION: BI-RADS Category 2 - Benign Findings Yearly screening mammography is recommended, due in 9 months. Breast Density - Category B, scattered fibroglandular densities. A negative radiographic report should not delay biopsy if a dominant or clinically suspicious mass is present. Up to ten percent of cancers are not identified on mammography. A negative report may reinforce clinical impression. Adenosis and dense breasts may obscure an underlying neoplasm. False positive reports average 6 to 10%. Patient will receive a letter notifying them of these results.
== END 2025-03-08 00:54 ==
LOC: DI 00:34
PROVIDERS: PCP Nurse Practitioner Family; Visit Provider Nurse Practitioner Family
DX: Z09 Encounter for follow-up examination after completed treatment for conditions other than malignant neoplasm (principal); R92.8 Other abnormal and inconclusive findings on diagnostic imaging of breast
CPT/HCPCS: 77061; 77065; G0279